=== PATIENT | male | born 2000 | race Caucasian/White ===

== ENCOUNTER 2020-08-10 17:35 | Emergency (ER) | payer OTHER ==
[2020-08-10] MEDS ORDERED: Ibuprofen 200 MG TAB ONE (19:28)
== END 2020-08-10 19:37 | disposition home or self-care (01) ==
LOC: CSHERS 17:35
DX: S43.014A Anterior dislocation of right humerus, initial encounter (principal); X50.0XXA Overexertion from strenuous movement or load, initial encounter; Y93.67 Activity, basketball
CPT/HCPCS: 23650